=== PATIENT | female | born 2000 | race Caucasian/White ===

== ENCOUNTER 2022-02-04 07:21 | Day surgery (SDC) | payer MEDICAID ==
[~2022-02-04] VITALS: Ht 170.2 cm; Wt 104.3 kg
[2022-02-04 07:59] LABS: HCG,QUAL RESULT NEGATIVE (NEGATIVE)
[2022-02-04] MEDS ORDERED: MIDAZOLAM HCL 5 MG/5 ML VIAL ONE ×2 (08:50→09:13)
[2022-02-04] MEDS ORDERED: fentaNYL CITRATE/PF 100 MCG/2 ML AMP ONE ×2 (08:50→09:13)
[2022-02-04] MEDS ORDERED: SIMETHICONE 40 MG/0.6 ML ML ONE (08:51)
[2022-02-04] MEDS ORDERED: DIPHENHYDRAMINE INJ 50 MG/ML VIAL ONE (09:06)
[2022-02-04 13:52] VITALS: BP_SYST 108
== END 2022-02-04 11:13 | disposition home or self-care (01) ==
LOC: SDS 07:21 → SMU 07:22 → SDS 11:13
PROVIDERS: ATTEND Internal Medicine
DX: K62.5 Hemorrhage of anus and rectum (principal); K52.9 Noninfective gastroenteritis and colitis, unspecified; K29.50 Unspecified chronic gastritis without bleeding; K29.80 Duodenitis without bleeding; K64.8 Other hemorrhoids; Z79.899 Other long term (current) drug therapy; Z20.822 Contact with and (suspected) exposure to COVID-19
CPT/HCPCS: 45380; 43239; 87426; 87081; 84703; 36415; 88305; 88312; 88313; 99153; 99152; G0378; J1200; J2250; J3010